=== PATIENT | male | born 1940 | race Caucasian/White ===

== ENCOUNTER 2024-03-07 15:46 | Emergency (ER) | payer MEDICARE ==
[~2024-03-07] VITALS: Ht 175.3 cm; Wt 88.0 kg
[~2024-03-07 15:46] MED LIST: FLOMAX0.4 MG PO; TRAMADOL HCL50 MG PO
[2024-03-07 16:02] LABS: BILIRUBIN, URINE NEGATIVE (negative); BLOOD/HGB, URINE TRACE-I (Negative); KETONE, URINE NEGATIVE (Negative); LEUK ESTERASE, URINE NEGATIVE (negative); NITRITE, URINE NEGATIVE (negative); PH, URINE 5.5 (5-7)
[2024-03-07 16:10] LABS: BACTERIA, URINE RARE /hpf (negative); CASTS, URINE NONE SEEN \\lpf; COLLECTION TYPE, URINE CLEAN CATCH; CRYSTALS, URINE NONE SEEN (0-1+); REFLEX CULTURE, URINE No (No); WHITE BLOOD CELLS, URINE 0-1 /HPF (0-5)
[2024-03-07 17:22] LABS: BASOPHILS 0.5 % (0-2); EOSINOPHILS 0.8 % (0-6); HEMATOCRIT 47.4 % (35.0-50.0); HEMOGLOBIN 16.3 g/dL (12.0-18.0); LYMPHOCYTES 11.7 % (24-44); MCH 32.3 (27-36); MCHC 34.4 g/dl (30-36); MCV 93.9 fl (81-99); MONOCYTES 6.7 % (0-12); NEUTROPHILS 80.3 % (39-80); PLATELET COUNT 239 K/uL (140-440); RBC 5.05 M/ul (4.3-5.7); RDW 13.4 (10.5-15.0)
[2024-03-07 17:39] LABS: ALBUMIN 3.9 g/dL (3.4-5.0); ALBUMIN/GLOBULIN RATIO 0.95 (1.1-2.4); ANION GAP 14.3 (7-21); BILIRUBIN, TOTAL 0.7 ng/dL (0.2-1.0); BUN/CREATININE RATIO 12.61 (6.0-28.6); CALCIUM 9.6 mg/dL (8.5-10.1); CREATININE, SERUM 1.11 mg/dL (0.70-1.30); POTASSIUM 4.3 mmol/L (3.5-5.1)
[2024-03-07 17:59] VITALS: BP 108/95
== END 2024-03-07 19:32 ==
LOC: ED 15:46
PROVIDERS: Emergency Medicine
DX: K40.31 Unilateral inguinal hernia, with obstruction, without gangrene, recurrent (principal); K43.9 Ventral hernia without obstruction or gangrene; K57.90 Diverticulosis of intestine, part unspecified, without perforation or abscess without bleeding; K76.0 Fatty (change of) liver, not elsewhere classified; F17.200 Nicotine dependence, unspecified, uncomplicated; Z88.0 Allergy status to penicillin; Z88.5 Allergy status to narcotic agent; Z79.891 Long term (current) use of opiate analgesic; Z79.899 Other long term (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
CPT/HCPCS: 36415; 51798; 74177; 80053; 81001; 83605; 85025; 99284-25; Q9967

== ENCOUNTER 2025-02-10 17:34 | Emergency (ER) | payer MEDICARE ==
[~2025-02-10] VITALS: Ht 175.3 cm; Wt 100.0 kg
[2025-02-10 17:56] LABS: BASOPHILS 0.5 % (0.2-1.2); EOSINOPHILS 1.2 % (0.8-7.0); LYMPHOCYTES 11.0 % (21.8-53.1); MCH 30.1 PG (25.7-32.2); MCHC 33.1 g/dL (32.3-36.5); MCV 90.8 fL (79.0-92.2); MONOCYTES 9.3 % (5.3-12.2); NEUTROPHILS 77.7 % (34.0-67.9); RBC 5.19 M/uL (4.63-6.08)
[2025-02-10 18:12] LABS: ALT (SGPT) 28.0 U/L (14-59); AST (SGOT) 25.0 U/L (15-37); GLOMERULAR FILTRATION RATE,EST 53.0 mL/min (>60); PROTEIN, TOTAL 7.8 g/dL (6.4-8.2); UREA NITROGEN 17.0 mg/dL (7-18)
[2025-02-10] MEDS ORDERED: LIDOCAINE 2% VISCOUS 6 ML SYR TOP ONE (18:15)
[2025-02-10 18:25] LABS: BLOOD/HGB, URINE TRACE-I (Negative); KETONE, URINE NEGATIVE (Negative); LEUK ESTERASE, URINE NEGATIVE (negative); NITRITE, URINE NEGATIVE (negative)
[2025-02-10 18:32] LABS: BACTERIA, URINE NONE SEEN /hpf (negative); CASTS, URINE NONE SEEN \\lpf; CRYSTALS, URINE NONE SEEN (0-1+); EPITHELIAL CELLS, URINE 0 /lpf (0-1+); REFLEX CULTURE, URINE No (No)
[2025-02-10] MEDS ORDERED: FLOMAX0.4 MG PO (19:27)
[2025-02-10] MEDS ORDERED: TAMSULOSIN HCL 0.4 MG CAP PO ONE (19:30)
[2025-02-10 19:54] VITALS: BP 151/97
== END 2025-02-10 19:55 | disposition home or self-care (01) ==
LOC: ED 17:34
PROVIDERS: Emergency Medicine
DX: N40.1 Benign prostatic hyperplasia with lower urinary tract symptoms (principal); R33.8 Other retention of urine; K40.91 Unilateral inguinal hernia, without obstruction or gangrene, recurrent; F17.200 Nicotine dependence, unspecified, uncomplicated; Z88.0 Allergy status to penicillin; Z88.5 Allergy status to narcotic agent; Z79.899 Other long term (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
CPT/HCPCS: 36415; 51702; 51798; 80053; 81001; 83690; 85025; 99284-25; A4311

== ENCOUNTER 2025-02-11 23:45 | Emergency (ER) | payer MEDICARE ==
[~2025-02-11] VITALS: Ht 175.3 cm; Wt 90.0 kg
--- OUTSIDE RECORDS SUMMARY | 2025-02-11 23:52 | XMS ---
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 Eliazar has no Care Guidelines for this patient. Caty VISIT COUNT (12 MO.) [address] [facility] [place] TOTAL 3 NOTE: Visits indicate total known visits. ED/C VISIT TRACKING (12 MO.) 02/11/2025 23:46 [facility] [place] TYPE: Emergency COMPLAINT: - CATHETER PROBLEMS 02/10/2025 17:35 [facility] [place] TYPE: Emergency COMPLAINT: - ABDOMINAL PAIN DIAGNOSES: - Allergy status to narcotic agent - Allergy status to penicillin - Benign prostatic hyperplasia with lower urinary tract symptoms - Lower abdominal pain, unspecified - Nicotine dependence, unspecified, uncomplicated - Other residential (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 - Other retention of urine - Unilateral inguinal hernia, without obstruction or gangrene, recurrent 03/07/2024 15:46 [facility] [place] TYPE: Emergency COMPLAINT: - ABDOMINAL PAIN DIAGNOSES: - Allergy status to narcotic agent - Allergy status to penicillin - Diverticulosis of intestine, part unspecified, without perforation or abscess without bleeding - Fatty (change of) liver, not elsewhere classified - [facility] (current) use of opiate analgesic - Nicotine dependence, unspecified, uncomplicated - Other residential (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 - Pelvic and perineal pain - Unilateral inguinal hernia, with obstruction, without gangrene, recurrent - Ventral hernia without obstruction or gangrene INPATIENT VISIT TRACKING (12 MO.) No inpatient visits to display in this time frame [id number]
[2025-02-12] MEDS ORDERED: LIDOCAINE 2% VISCOUS 6 ML SYR TOP ONE ×2 (00:15→00:30)
[2025-02-12] MEDS ORDERED: PHENAZOPYRIDINE HCL 100 MG TAB PO ONE (00:30)
[2025-02-12] MEDS ORDERED: TAMSULOSIN HCL 0.4 MG CAP PO ONE (00:30)
[2025-02-12] MEDS ORDERED: PYRIDIUM100 MG PO (00:49)
[2025-02-12 01:24] VITALS: BP 137/83
== END 2025-02-12 02:08 | disposition home or self-care (01) ==
LOC: ED 23:45
DX: N40.1 Benign prostatic hyperplasia with lower urinary tract symptoms (principal); R33.8 Other retention of urine; K40.91 Unilateral inguinal hernia, without obstruction or gangrene, recurrent; F17.200 Nicotine dependence, unspecified, uncomplicated; Z88.0 Allergy status to penicillin; Z88.5 Allergy status to narcotic agent; Z79.899 Other long term (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
CPT/HCPCS: 51702; 51798; 99284-25; A4311

== ENCOUNTER 2025-02-16 23:47 | Emergency (ER) | payer MEDICARE ==
[~2025-02-16] VITALS: Ht 175.3 cm; Wt 88.6 kg
[~2025-02-16 23:47] MED LIST changes: +PYRIDIUM100 MG PO
--- OUTSIDE RECORDS SUMMARY | 2025-02-16 23:54 | XMS ---
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 Eliazar has no Care Guidelines for this patient. Caty VISIT COUNT (12 MO.) 4 [facility] [place] [facility] TOTAL 4 NOTE: Visits indicate total known visits. ED/C VISIT TRACKING (12 MO.) 02/16/2025 23:47 [facility] [place] TYPE: Emergency COMPLAINT: - CATHETER ISSUES 02/11/2025 23:46 [facility] [place] TYPE: Emergency COMPLAINT: - CATHETER PROBLEMS DIAGNOSES: - Allergy status to narcotic agent - Allergy status to penicillin - Benign prostatic hyperplasia with lower urinary tract symptoms - Nicotine dependence, unspecified, uncomplicated - Other terminal makeup operator (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 - Other retention of urine - Retention of urine, unspecified - Unilateral inguinal hernia, without obstruction or gangrene, recurrent 02/10/2025 17:35 [facility] [place] TYPE: Emergency COMPLAINT: - ABDOMINAL PAIN DIAGNOSES: - Allergy status to narcotic agent - Allergy status to penicillin - Benign prostatic hyperplasia with lower urinary tract symptoms - Lower abdominal pain, unspecified - Nicotine dependence, unspecified, uncomplicated - Other retirement (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 - Other retention of urine - Unilateral inguinal hernia, without obstruction or gangrene, recurrent 03/07/2024 15:46 [facility] [place] TYPE: Emergency COMPLAINT: - ABDOMINAL PAIN DIAGNOSES: - Allergy status to narcotic agent - Allergy status to penicillin - Diverticulosis of intestine, part unspecified, without perforation or abscess without bleeding - Fatty (change of) liver, not elsewhere classified - senior care (current) use of opiate analgesic - Nicotine dependence, unspecified, uncomplicated - Other terminal makeup operator (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 - Pelvic and perineal pain - Unilateral inguinal hernia, with obstruction, without gangrene, recurrent - Ventral hernia without obstruction or gangrene INPATIENT VISIT TRACKING (12 MO.) No inpatient visits to display in this time frame [id number]
[2025-02-17] MEDS ORDERED: LIDOCAINE 2% VISCOUS 6 ML SYR TOP ONE (00:15)
[2025-02-17 00:36] LABS: BLOOD/HGB, URINE LARGE (Negative); KETONE, URINE NEGATIVE (Negative); LEUK ESTERASE, URINE TRACE (negative); NITRITE, URINE POSITIVE (negative)
[2025-02-17] MEDS ORDERED: MACROBID 100 M100 MG PO (00:52)
[2025-02-17 00:56] LABS: BACTERIA, URINE 1+ /hpf (negative); CRYSTALS, URINE NONE SEEN (0-1+); EPITHELIAL CELLS, URINE SQUAMOUS 1+ /lpf (0-1+)
[2025-02-17 00:57] LABS: CASTS, URINE HYALINE 1+ \\lpf; REFLEX CULTURE, URINE Yes (No)
[2025-02-17] MEDS ORDERED: NITROFURANTOIN MONOHYD MACROCR 100 MG HOME.PACK PO ONE (01:00)
[2025-02-17 01:24] VITALS: BP 147/89
== END 2025-02-17 01:30 | disposition home or self-care (01) ==
LOC: ED 23:47
PROVIDERS: Family Medicine
DX: T83.091A Other mechanical complication of indwelling urethral catheter, initial encounter (principal); Y84.6 Urinary catheterization as the cause of abnormal reaction of the patient, or of later complication, without mention of misadventure at the time of the procedure; F17.200 Nicotine dependence, unspecified, uncomplicated; Z79.899 Other long term (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; Z88.0 Allergy status to penicillin; Z88.5 Allergy status to narcotic agent
CPT/HCPCS: 51702; 51798; 81001; 87088; 99283; A4311

== ENCOUNTER 2025-04-03 05:42 | Day surgery (SDC) | payer MEDICARE ==
[~2025-04-03] VITALS: Ht 175.3 cm; Wt 98.0 kg
[~2025-04-03 05:42] MED LIST changes: +LACTATED RINGER'S 1,000 ML IV SCH; +MACROBID 100 M100 MG PO; +VITAMIN D3125 MC2 PO
[2025-04-03 06:08] VITALS: BP 152/86
[2025-04-03] MEDS ORDERED: HEParin SOD (PORCINE) 5,000 UNIT/ML SDV SUB-Q SCH (07:00)
[2025-04-03] MEDS ORDERED: IBLOOD GLUCOSE TEST STRIP 1 EA TEST VI PRN ×2 (07:00→10:15)
[2025-04-03] MEDS ORDERED: CEFAZOLIN SODIUM 2 GM in SODIUM CHLORIDE 0.9% 100 ML IV SCH (07:00)
[2025-04-03] MEDS ORDERED: LIDOCAINE HCL 1% 5 ML SDV INJ ONE (07:00)
[2025-04-03] MEDS ORDERED: ROCURONIUM BROMIDE 50 MG/5 ML SYR ONE ×2 (07:11→09:20)
[2025-04-03] MEDS ORDERED: LIDOCAINE HCL 2% 5 ML SDV ONE (07:11)
[2025-04-03] MEDS ORDERED: fentaNYL citrate 100 MCG/2 ML VIAL ONE (07:12)
[2025-04-03] MEDS ORDERED: ACETAMINOPHEN 1,000 MG/100 ML VIAL ONE (07:56)
[2025-04-03] MEDS ORDERED: DEXAMETHASONE SOD PHOS 4 MG/ML VIAL ONE (07:58)
[2025-04-03] MEDS ORDERED: LACTATED RINGER'S 1,000 ML IV ONE (08:29)
[2025-04-03] MEDS ORDERED: SUGAMMADEX SODIUM 200 MG/2 ML ML ONE (09:55)
[2025-04-03] MEDS ORDERED: NALOXONE HCL 0.4 MG SYR IV PRN ×2 (10:15→10:45)
[2025-04-03] MEDS ORDERED: fentaNYL citrate 50 MCG/ML SDV IV PRN (10:15)
--- NOTE | 2025-04-03 10:21 | NUR ---
04/03/25 1021 Sheets,Jasmina 1012 PT ARRIVED TO PACU ON 6L VIA MASK AND ORAL AIRWAY IN PLACE WITH CHIN LIFT USED OFF AND ON TO MAINTAIN AIRWAY, DEEP BREATHING ENCOURAGED. 1019 PT STARTED SWALLOWING AND ORAL AIRWAY REMOVED, RESP EVEN AND UNLABORED. PT EYES REMAIN CLOSED.
[2025-04-03] MEDS ORDERED: IBUPROFEN600 MG PO ×2 (10:38)
[2025-04-03] MEDS ORDERED: ACETAMINOPHEN500 MG PO ×2 (10:38)
[2025-04-03] MEDS ORDERED: OXYCODON-ACETA1 EAC2 PO ×2 (10:39)
[2025-04-03] MEDS ORDERED: IBUPROFEN 600 MG TAB PO PRN (10:45)
[2025-04-03] MEDS ORDERED: ACETAMINOPHEN 500 MG TAB PO PRN (10:45)
[2025-04-03] MEDS ORDERED: OXYCODONE/APAP 7.5/325 TAB PO PRN (10:45)
[2025-04-03] MEDS ORDERED: LACTATED RINGER'S 1,000 ML IV SCH (10:45)
[2025-04-03 11:31] VITALS: BP 169/86
--- NOTE | 2025-04-03 11:47 | NUR ---
1125- PT ARRIVES FROM PACU AT THIS TIME. LR INFUSING. SURGICAL SITE SHOWS A SMALL AMOUNT OF RED DRAINAGE. VITAL SIGNS OBTAINED. PT REPORTS 6/10 PAIN THAT IS TOLERABLE BUT NOT COMFORTABLE. ORAL PAIN MEDICATION DISCUSSED. PT HAS DOMINGUEZ IN PLACE AND IS DRAINING CLEAR, YELLOW, URINE. DISCHARGE CRITERIA DISCUSSED AND PT IS UNDERSTANDING. CALL LIGHT IN REACH AND BED IS LOCKED IN THE LOWEST POSITON. PT IS ON 2L OF O2 VIA NC. 1143- PAIN MEDICATION GIVEN TO PT PER REQUEST ALONG WITH APPLE SAUCE AND COFFEE. ICE WATER AT THE SIDE OF THE BED TABLE.
[2025-04-03 12:22] VITALS: BP 153/83
--- NOTE | 2025-04-03 12:24 | NUR ---
1224- PT IS HOLDING HIS HAND OVER THE INCISION SITE WITH A SMALL AMOUNT OF FACIAL GRIMACING NOTED. PT REPORTS THAT PAIN IS AT A 7/10 AND REALLY UNCOMFORTABLE. PAIN MEDICATION GIVEN, SEE EMAR. VITAL SIGNS OBTAINED. CALL LIGHT IN REACH. BED IS LOCKED IN THE LOWEST POSITION. LR INFUSING. PT WAS ABLE TO SIP ON WATER AND EAT 2 APPLE SAUCE CONTAINERS. PT REPORTS HE IS HAPPY HE HAS FOOD ON HIS STOMACH. HOT PACK PROVIDED. AND BED ADJUSTED FOR PT COMFORT.
[2025-04-03 13:10] VITALS: BP 117/84
[2025-04-03] MEDS ORDERED: HYDROmorphone HCL 1 MG/ML SYR IV ONE (13:15)
--- NOTE | 2025-04-03 13:52 | NUR ---
1309- PT REPORTS THAT PAIN HAS NOT GOTTEN ANY BETTER AND CONTINUES TO BE IN THE 7-8 RANGE ON PAIN. PT BP IS DECREASED. PT SHOWS LESS FACIAL GRIMACING BUT STILL HOLDING HANDS OVER INCISION SITE. PT DENIES NEEDS AT THIS TIME, OTHER THAN HELP WITH PAIN MANAGEMENT. 1325- 0.5 OF DILAUDID GIVEN PER CLINICAL JUDGEMENT. WITH DECREASED BP THATS STILL WNL. 1350- PT IS EDUCATED ABOUT DRAIN AND SHOWN HOW TO CARE FOR IT. ALL QUESTIONS AND CONCERNS ANSWERED. DOMINGUEZ CATHETER IS DRAINED AT THIS TIME FOR A TOTAL OF 1000ML OF CLEAR YELLOW URINE AND THE DRAIN HAD 30ML OF RED DRAINAGE. CALL LIGHT IN REACH. PT REPORTS THAT PAIN IS NOW AT A 6/10 AND MORE TOLERABLE. CALL LIGHT IN REACH.
[2025-04-03] MEDS ORDERED: SEVOFLURANE 250 ML BTL INH ONE (14:25)
[2025-04-03 14:29] VITALS: BP 166/93
--- NOTE | 2025-04-03 15:49 | NUR ---
1430- VITAL SIGNS TAKEN AND PT REPORTS THAT PAIN IS BETTER AND A 3/10 NOW WITH A THUMBS UP. DISCHARGE INFORMATION GONE OVER AND ALL QUESTIONS AND CONCERNS ANASWERED. PT IS ABLE TO SHOW RN HOW TO EMPTY HIS DRAIN INDEPENDENTLY WITH SOME VERBAL ASSISTANCE. LEG BAG APPLIED PT IS RETURNING HOME WITH HIS CATHETER THAT HE HAD IN PLACE ON ARRIVAL. 1538- PT IS DRESSED WITH ASSISTANCE FROM RN. PT IS A LITTLE UNSTEADY AND USING HIS PERSONAL CANE. PT IS ABLE TO AMBULATE TO HOSPITAL WHEELCHAIR. PT HAS ALL PERSONAL BELONGINGS. PT IS WHEELED TO THE FRONT DOOR AND IS ABLE TO GET INTO HIS NEIGHBORS TRUCK WITH SOME ASSISTANCE. NEIGHBOR IS MADE AWARE ABOUT PRESCRIPTION TO BE PICKED UP.
--- NOTE | 2025-04-04 09:06 | OR ---
[facility] [address], [place] [address] Signed DATE OF OPERATION: 04/03/2025 SURGEON: Pepe Mathew MD PREOPERATIVE DIAGNOSIS: Giant incarcerated right inguinal hernia. POSTOPERATIVE DIAGNOSES: Giant incarcerated right inguinal hernia, indirect hernia with sliding component (mesentery and small bowel). PROCEDURE: Repair of complex right inguinal hernia (incarcerated) sliding type with implantation of Prolene mesh and excision of portion of hernia sac. ANESTHESIA: General endotracheal; Cynthia Shirley CRNA and local 10 mL of 0.25% Marcaine with epinephrine. INDICATION: This 84-year-old white man has no primary care provider, but presented to the emergency room with urinary retention and was found to have a giant right inguinal hernia. A Staley catheter was placed relieving his obstruction. The hernia is nonreducible on clinical grounds. I have recommended repair. Prostate exam does not show the prostate to be inordinately large or with nodularity. He is due to see Dr. Erin Selby in the near future for further management of his urinary retention and prostatic evaluation. He is admitted at this time to undergo hernia repair. He understands the risk of bleeding, infection, recurrence, and other unforeseen complications. FINDINGS: A very large hernia was noted indeed. It was at least the size of a cantaloupe. It turned out to be an indirect hernia with a very large and well-formed sac. A sliding component of small bowel and its mesentery was noted in the medial aspect. Excision of redundant sac was accomplished and reduction of the closed hernia sac and other viscera into the peritoneal space. Implantation of Prolene mesh was undertaken and support of the floor. Cord structures were found to be normal. Given the extent of the excision and so forth, a drain was left in place. DESCRIPTION OF PROCEDURE: The patient was brought to the operating room and given a general endotracheal Electronically Signed By: PEPE MATHEW MD 04/04/25 0906 PATIENT NAME: LILI JUAREZ OPERATIVE REPORT DATE OF : 44 REPORT #: [id number] PHYSICIAN: PEPE MATHEW MD PCP: NO PRIMARY CARE PHYSICIAN REPORT IS CONFIDENTIAL AND NOT TO BE RELEASED WITHOUT AUTHORIZATION [facility] [address], [place] [address] Signed anesthetic. Preoperative antibiotic Ancef was given and sequential compression device stockings were used. The lower abdomen was clipped and prepared with chlorhexidine solution. A Staley catheter remains in place right now, anticipating change in the near future by Dr. Selby and her office. The lower abdomen was prepared with a chlorhexidine solution including the scrotum and surrounding genitalia. Various manipulations were undertaken once the patient was fully relaxed under anesthesia, which did allow for reduction of the bulky hernia largely. An incision was made cephalad to the pubic tubercle. Dissection was carried through the subcutaneous tissue with electrocautery. Complete attenuation and obliteration of the external oblique was noted. The bulky hernia was then bluntly from the surrounding soft tissue. Electrocautery was used to incise filmy external spermatic fascia ultimately allowing for of the cord structures with a Geovani drain. Various maneuvers were used to elevate the cord and the hernia sac and hernia sac was dissected free from the cord with meticulous care using electrocautery and blunt dissection. Ultimately, the hernia sac was fully from the cord. The hernia sac was elevated and incised and opened and internally one could see adhesion of small bowel to the wall in the medial and inferior aspect. These were taken down with sharp and blunt electrocautery dissection. Ultimately, most of the bowel was reduced entirely, however, the was made up of fatty tissue, possibly related to bladder and to a lesser extent the small bowel. This area was left in situ. The wide base hernia sac was oversewn as high as possible initially with a 2-0 silk and subsequently 0 silk in a running configuration. This allowed the sliding component of the hernia and the oversewn hernia sac to be replaced in the properitoneal space. The hernia sac was passed for pathology. An Allis clamp was applied to the tendon of the transversus abdominis. The floor itself was rather attenuated. Part of the floor was incised with electrocautery, but additional dissection more lateral near the cord was left as is. A segment of Prolene ProGrip mesh was secured in an underlay technique with interrupted 2-0 Prolene sutures. Meticulous care was made to secure the mesh in the properitoneal space with the tails of the graft taken lateral to the cord structures and secured also. Irrigation was undertaken. The Joey's layer was reapproximated with interrupted 2-0 Vicryl and the skin closed with running subcuticular 3-0 Vicryl. Steri-Strips were applied as was an Acticoat dressing. 5 mL of 0.25% Marcaine with epinephrine was injected locally. Prior to closure through a separate stab incision, a 7 mm flat Edward drain was placed in the floor of the canal extending down into the hemiscrotum. Quite notably the testicle had been spared of any particular trauma, but given the space and propensity for swelling and bleeding, the drain was deemed most advisable. He was ultimately extubated and transferred to recovery room in good condition having suffered no complication. The operation was prolonged, complicated, and difficult lasting from 8 a.m. to approximately 10:20 a.m. just four times longer than usual. Electronically Signed By: PEPE MATHEW MD 04/04/25 0906 PATIENT NAME: LILI JUAREZ OPERATIVE REPORT DATE OF : 44 REPORT #: [id number] PHYSICIAN: PEPE MATHEW MD PCP: NO PRIMARY CARE PHYSICIAN REPORT IS CONFIDENTIAL AND NOT TO BE RELEASED WITHOUT AUTHORIZATION [address] [address] Signed MD KAREEN Shah/MODL /[id number] cc: KHLOE Jean Baptiste MD Copies: ROCÍO SELBY MD ~ Electronically Signed By: PEPE MATHEW MD 04/04/25 0906 PATIENT NAME: LILI JUAREZ OPERATIVE REPORT DATE OF : [birth year] REPORT #: [id number] PHYSICIAN: PEPE MATHEW MD PCP: NO PRIMARY CARE PHYSICIAN REPORT IS CONFIDENTIAL AND NOT TO BE RELEASED WITHOUT AUTHORIZATION
--- NOTE | 2025-04-09 17:21 | PATH ---
[facility] [address] [place] [address] Signed SPECIMEN(S): A RIGHT INGUINAL HERNIA SAC SPECIMEN SOURCE: A. RIGHT INGUINAL HERNIA SAC CLINICAL HISTORY: Giant right inguinal hernia FINAL PATHOLOGIC DIAGNOSIS: A. Right inguinal hernia sac, herniorrhaphy: - Benign hernia sac. DDF MICROSCOPIC EXAMINATION: Histologic sections of all submitted blocks are examined by light microscopy. These findings, together with the gross examination, support the pathologic diagnosis. GROSS DESCRIPTION: The specimen, labeled and designated "Breanne, right inguinal hernia sac," is received in formalin and consists of fibromembranous and fibroadipose tissue that measure 17 x 7.5 x 0.9 cm. Fibromembranous tissue is violaceous and focally congested. Sectioning through the specimen is grossly unremarkable. Carpenters Supervisor sections are submitted in (A1). JS (under the direct supervision of a pathologist) The Gross Description was prepared using a voice recognition system. The report was reviewed for accuracy; however, sound-alike word errors, addition and/or deletions may occur. If there is any question about this report, please contact Client Services. ADDITIONAL NOTES: Immunohistochemical and/or in situ hybridization studies if performed in this case included appropriate positive controls that reacted as expected. This test was developed and its performance characteristics determined by [facility]. It has not been cleared or approved by the U.S. Food and Drug Administration. The FDA has determined that such clearance or approval is not necessary. This test is used for clinical purposes. It should not be regarded as investigational or for research. [facility] is certified under the Clinical Laboratory Improvement PATIENT NAME: LILI JUAREZ PATHOLOGY DATE OF : 42 REPORT #: [id number] PHYSICIAN: [facility] PCP: NO PRIMARY CARE PHYSICIAN REPORT IS CONFIDENTIAL AND NOT TO BE RELEASED WITHOUT AUTHORIZATION [facility] [address] [facility] [place] [place] [address] Signed Amendments of 1988 (CLIA) as qualified to perform high complexity clinical laboratory testing. PERFORMING LABORATORY: Technical component was performed by [facility], [address] [place] [id number] (CLIA# [id number]). Professional interpretation was performed by [facility] - [address] [id number] Diagnostician: Joel Aly DO Pathologist Electronically Signed 04/09/2025 Copies: ~ PATIENT NAME: LILI JUAREZ PATHOLOGY DATE OF : 44 REPORT #: [id number] PHYSICIAN: [facility] PCP: NO PRIMARY CARE PHYSICIAN REPORT IS CONFIDENTIAL AND NOT TO BE RELEASED WITHOUT AUTHORIZATION
== END 2025-04-03 15:38 | disposition home or self-care (01) ==
LOC: DS 05:42
PROVIDERS: ATTEND Surgery
PROC: 0YU50JZ Supplement Right Inguinal Region with Synthetic Substitute, Open Approach (ICD-10-PCS; principal; 2025-04-03 07:30)
DX: K40.30 Unilateral inguinal hernia, with obstruction, without gangrene, not specified as recurrent (principal); R33.9 Retention of urine, unspecified; Z88.0 Allergy status to penicillin; Z88.5 Allergy status to narcotic agent; Z87.891 Personal history of nicotine dependence
CPT/HCPCS: 00830; 88302; A9270; C1781; J0131; J0688; J1100; J1171; J1644; J2003; J2405; J2704; J3010; J3490; J7121

== ENCOUNTER 2025-04-05 08:37 | Emergency (ER) | payer MEDICARE ==
[~2025-04-05] VITALS: Ht 175.3 cm; Wt 100.9 kg
[~2025-04-05 08:37] MED LIST changes: +ACETAMINOPHEN500 MG PO; +IBUPROFEN600 MG PO; -LACTATED RINGER'S 1,000 ML IV SCH; +OXYCODON-ACETA1 EAC2 PO
[2025-04-05] MEDS ORDERED: LIDOCAINE 2% VISCOUS 6 ML SYR TOP ONE (09:00)
[2025-04-05 09:37] LABS: BLOOD/HGB, URINE LARGE (Negative); KETONE, URINE NEGATIVE (Negative); LEUK ESTERASE, URINE TRACE (negative); NITRITE, URINE NEGATIVE (negative)
[2025-04-05 09:43] LABS: EPITHELIAL CELLS, URINE SQUAMOUS 1+ /lpf (0-1+)
[2025-04-05 09:44] LABS: BACTERIA, URINE 1+ /hpf (negative); CASTS, URINE NONE SEEN \\lpf; CRYSTALS, URINE NONE SEEN (0-1+); REFLEX CULTURE, URINE Yes (No)
[2025-04-05] MEDS ORDERED: SODIUM CHLORIDE 0.9% 1,000 ML IV ONE (09:45)
[2025-04-05 10:13] LABS: BASOPHILS 0.5 % (0.2-1.2); EOSINOPHILS 0.9 % (0.8-7.0); LYMPHOCYTES 12.9 % (21.8-53.1); MCH 31.3 PG (25.7-32.2); MCHC 32.4 g/dL (32.3-36.5); MCV 96.7 fL (79.0-92.2); MONOCYTES 10.4 % (5.3-12.2); NEUTROPHILS 75.0 % (34.0-67.9); RBC 4.50 M/uL (4.63-6.08)
[2025-04-05 10:29] LABS: ALT (SGPT) 28.0 U/L (14-59); AST (SGOT) 23.0 U/L (15-37); GLOMERULAR FILTRATION RATE,EST 74.0 mL/min (>60); PROTEIN, TOTAL 7.1 g/dL (6.4-8.2); UREA NITROGEN 19.0 mg/dL (7-18)
[2025-04-05 10:54] VITALS: BP 132/85
== END 2025-04-05 10:54 | disposition home or self-care (01) ==
LOC: ED 08:37
PROVIDERS: Emergency Medicine
DX: T83.091A Other mechanical complication of indwelling urethral catheter, initial encounter (principal); Z79.899 Other long term (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; Z88.0 Allergy status to penicillin; Z88.5 Allergy status to narcotic agent; F17.200 Nicotine dependence, unspecified, uncomplicated
CPT/HCPCS: 36415; 74177; 80053; 81001; 85025; 87088; 99284-25; J7030; Q9967

== ENCOUNTER 2025-04-25 10:01 | Emergency (ER) | payer MEDICARE ==
[~2025-04-25] VITALS: Ht 175.3 cm; Wt 100.9 kg
--- OUTSIDE RECORDS SUMMARY | ~2025-04-25 | XMS | Continuity of Care Document ---
Demographics + + + | Address | [address] | | | [place] [address] | + + + | Preferred Language | Unknown | + + + | Marital Status | | + + + | Denominational Affiliation | Unknown | + + + | Race | White | + + + | Ethnic Group | Not or | + + + Author + + + | Author | [facility] | + + + | Organization | [facility] | + + + | Address | [address] | | | [place] [address] | + + + | Phone | | + + + Care Team Providers + + + + | Care Floor Layer Helper Name | Role | Phone | + [...] Severe | | 00:00 | | [facility] [...] | Severe | | 00:00 | | [facility] | | | | | | Hospital | | | + + + + + + Encounters No information. Functional Status No information. Immunizations + + + + | date | description | facility | + + + + | (no date) | No vaccine administered | [facility] | | | | [facility] | + + + + Medications + + + + | date | description | facility | + + + + | 2025-04-03 00:00 | OXYCODONE | [facility] | | | HCL/ACETAMINOPHEN | [facility] | + + + + | 2025-04-03 00:00 | acetaminophen 325 MG / | [facility] | | | oxycodone hydrochloride 7.5 | [facility] | | | MG Oral T | | + + + + | (no date) | PHENAZOPYRIDINE HCL | [facility] | | | | [facility] | + + + + | 2025-02-12 00:00 | PHENAZOPYRIDINE HCL | [facility] | | | | [facility] | + + + + | (no date) | phenazopyridine | [facility] | | | hydrochloride 100 MG Oral | [facility] | | | Tablet [Pyridium] | | + + + + | 2025-02-12 00:00 | phenazopyridine | [facility] | | | hydrochloride 100 MG Oral | [facility] | | | Tablet [Pyridium] | | + + + + | 2025-04-03 00:00 | IBUPROFEN | [facility] | | | | [facility] | + + + + | 2025-04-03 00:00 | ibuprofen 600 MG Oral | [facility] | | | Tablet | [facility] | + + + + | 2025-04-03 00:00 | ACETAMINOPHEN | [facility] | | | | [facility] | + + + + | 2025-04-03 00:00 | acetaminophen 500 MG Oral | [facility] | | | Tablet | [facility] | + + + + | 2025-02-17 00:00 | NITROFURANTOIN MONOHYD | [facility] | | | MACROCR | [facility] | + + + + | 2025-02-17 00:00 | nitrofurantoin, | [facility] | | | macrocrystals 25 MG / | [facility] | | | nitrofurantoin, monohy | | + + + + | (no date) | Cholecalciferol (Vitamin | [facility] | | | D3) | [facility] | + + + + | (no date) | cholecalciferol 0.125 MG | [facility] - | | | Oral Tablet | [facility] | + + + + | (no date) | TAMSULOSIN HCL | [facility] | | | | [facility] | + + + + | 2025-02-10 00:00 | T[facility]OSIN HCL | [facility] | | | | [facility] | + + + + | (no date) | tamsulosin hydrochloride | [facility] | | | 0.4 MG Oral Capsule | [facility] | | | [Flomax] | | + + + + | 2025-02-10 00:00 | tamsulosin hydrochloride | [facility] | | | 0.4 MG Oral Capsule | [facility] | | | [Flomax] | | + + + + Problems + + + + | date | description | facility | + + + + | 2025-02-10 00:00 | Recurrent unilateral | [facility] | | | inguinal hernia | [facility] | + + + + | 2025-02-10 00:00 | Urinary retention due to | [facility] | | | benign prostatic | [facility] | | | hyperplasia | | + + + + | 2025-02-10 00:00 | Recurrent unilateral | [facility] | | | inguinal hernia | [facility] | + + + + | 2025-02-10 00:00 | Urinary retention due to | [facility] | | | benign prostatic | [facility] | | | hyperplasia | | + + + + | 2025-02-17 00:00 | Obstructed Staley catheter | [facility] | | | | [facility] | + + + + | 2025-02-17 00:00 | Obstruction of Staley | [facility] | | | catheter | [facility] | + + + + Procedures + + + + | date | description | facility | + + + + | 2025-04-03 00:00 | Repair of right inguinal | [facility] | | | hernia with mesh | [facility] | + + + + | 2025-04-03 00:00 | Repair of right inguinal | [facility] | | | hernia with mesh | [facility] | + + + + Results/Labs [...] 18 | + + + + + +-------+ [...] 17 | + + + + + +-------+ [...] 18 | + + + + + +-------+ [...] 21 | + + + + + +--------+ [...] 26 | + + + + + +--------+ [...] 26 | + + + + + +--------+ [...] [facility] | | | | [facility] | + + + + Vital [...] d | | | + + + +---------+"
--- OUTSIDE RECORDS SUMMARY | 2025-04-25 10:07 | XMS ---
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 Eliazar has no Care Guidelines for this patient. Caty VISIT COUNT (12 MO.) [address] [facility] [address] [facility] [place] TOTAL 5 NOTE: Visits indicate total known visits. ED/C VISIT TRACKING (12 MO.) 04/25/2025 10:01 [facility] [place] TYPE: Emergency COMPLAINT: - URINE PROBLEM 04/05/2025 08:37 [facility] [place] TYPE: Emergency COMPLAINT: - URINE PROBLEM DIAGNOSES: - Allergy status to narcotic agent - Allergy status to penicillin - Lower abdominal pain, unspecified - Nicotine dependence, unspecified, uncomplicated - Other senior living (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 - Other mechanical complication of indwelling urethral catheter, initial encounter 02/16/2025 23:47 [facility] [place] TYPE: Emergency COMPLAINT: - CATHETER ISSUES DIAGNOSES: - Allergy status to narcotic agent - Allergy status to penicillin - Nicotine dependence, unspecified, uncomplicated - Other senior living (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 - Other mechanical complication of indwelling urethral catheter, initial encounter - Urinary catheterization as the cause of abnormal reaction of the patient, or of later complication, without mention of misadventure at the time of the procedure 02/11/2025 23:46 [facility] [place] TYPE: Emergency COMPLAINT: - CATHETER PROBLEMS DIAGNOSES: - Allergy status to narcotic agent - Allergy status to penicillin - Benign prostatic hyperplasia with lower urinary tract symptoms - Nicotine dependence, unspecified, uncomplicated - Other senior living (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 - Other retention of urine - Retention of urine, unspecified - Unilateral inguinal hernia, without obstruction or gangrene, recurrent 02/10/2025 17:[address] [facility] [address] [facility] [place] TYPE: Emergency COMPLAINT: - ABDOMINAL PAIN DIAGNOSES: - Allergy status to narcotic agent - Allergy status to penicillin - Benign prostatic hyperplasia with lower urinary tract symptoms - Lower abdominal pain, unspecified - Nicotine dependence, unspecified, uncomplicated - Other keno terminal operator (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 - Other retention of urine - Unilateral inguinal hernia, without obstruction or gangrene, recurrent INPATIENT VISIT TRACKING (12 MO.) No inpatient visits to display in this time frame [id number]
[2025-04-25] MEDS ORDERED: LIDOCAINE 2% VISCOUS 6 ML SYR TOP ONE (10:15)
[2025-04-25 10:21] VITALS: BP 139/74
== END 2025-04-25 10:48 | disposition home or self-care (01) ==
LOC: ED 10:01
PROC: 0TWBX0Z Revision of Drainage Device in Bladder, External Approach (ICD-10-PCS; principal; 2025-04-25)
DX: T83.091A Other mechanical complication of indwelling urethral catheter, initial encounter (principal); F17.200 Nicotine dependence, unspecified, uncomplicated; Z88.0 Allergy status to penicillin; Z88.5 Allergy status to narcotic agent
CPT/HCPCS: 51702; 99283; A4311

== ENCOUNTER 2025-05-06 11:57 | Inpatient (IN) | payer MEDICARE ==
[~2025-05-06] VITALS: Ht 175.3 cm; Wt 91.5 kg
--- OUTSIDE RECORDS SUMMARY | ~2025-05-06 | XMS | Continuity of Care Document ---
Demographics + + + | Address | [address] | | | [place] [address] | + + + | Preferred Language | Unknown | + + + | Marital Status | | + + + | Jew Affiliation | Unknown | + + + | Race | White | + + + | Ethnic Group | Not or | + + + Author + + + | Author | [facility] | + + + | Organization | [facility] | + + + | Address | [address] | | | [place] [address] | + + + | Phone | | + + + Care Team Providers + + + + | Care Block Sawyer Name | Role | Phone | + [...] | Severe | | 00:00 | | [facility] | | | | | | Hospital | | | + + + + + + Encounters No information. Functional Status No information. Immunizations + + + + | date | description | facility | + + + + | (no date) | No vaccine administered | [facility] | | | | [facility] | + + + + Medications + + + + | date | description | facility | + + + + | 2025-04-03 00:00 | [facility] | | | HCL/ACETAMINOPHEN | [facility] | + + + + | 2025-04-03 00:00 | OXYCODONE | [facility] | | | HCL/ACETAMINOPHEN | [facility] | + + + + | 2025-04-03 00:00 | acetaminophen 325 MG / | [facility] | | | oxycodone hydrochloride 7.5 | [facility] | | | MG Oral T | | + + + + | (no date) | PHENAZOPYRIDINE HCL | [facility] | | | | [facility] | + + + + | (no date) | PHENAZOPYRIDINE HCL | [facility] | | | | [facility] | + + + + | 2025-02-12 00:00 | PHENAZOPYRIDINE HCL | [facility] | | | | [facility] | + + + + | 2025-02-12 00:00 | PHENAZOPYRIDINE HCL | [facility] | | | | [facility] | + + + + | (no date) | phenazopyridine | [facility] | | | hydrochloride 100 MG Oral | [facility] | | | Tablet [Pyridium] | | + + + + | 2025-02-12 00:00 | phenazopyridine | [facility] | | | hydrochloride 100 MG Oral | [facility] | | | Tablet [Pyridium] | | + + + + | 2025-04-03 00:00 | IBUPROFEN | [facility] | | | | [facility] | + + + + | 2025-04-03 00:00 | [facility]PROFEN | [facility] | | | | [facility] | + + + + | 2025-04-03 00:00 | ibuprofen 600 MG Oral | [facility] | | | Tablet | [facility] | + + + + | 2025-04-03 00:00 | ACETAMINOPHEN | [facility] | | | | [facility] | + + + + | 2025-04-03 00:00 | ACETAMINOPHEN | [facility] | | | | [facility] | + + + + | 2025-04-03 00:00 | acetaminophen 500 MG Oral | [facility] - | | | Tablet | [facility] | + + + + | 2025-02-17 00:00 | NITROFURANTOIN MONOHYD | [facility] | | | MACROCR | [facility] | + + + + | 2025-02-17 00:00 | NITROFURANTOIN MONOHYD | [facility] | | | MACROCR | [facility] | + + + + | 2025-02-17 00:00 | nitrofurantoin, | [facility] | | | macrocrystals 25 MG / | [facility] | | | nitrofurantoin, monohy | | + + + + | (no date) | Cholecalciferol (Vitamin | [facility] | | | D3) | [facility] | + + + + | (no date) | Cholecalciferol (Vitamin | [facility] | | | D3) | [facility] | + + + + | (no date) | cholecalciferol 0.125 MG | [facility] | | | Oral Tablet | [facility] | + + + + | (no date) | TAMSULOSIN HCL | [facility] | | | | [facility] | + + + + | (no date) | TAMSULOSIN HCL | [facility] | | | | [facility] | + + + + | 2025-02-10 00:00 | TAMSULOSIN HCL | [facility] | | | | [facility] | + + + + | 2025-02-10 00:00 | TAMSULOSIN HCL | [facility] | | | | [facility] | + + + + | (no date) | tamsulosin hydrochloride | [facility] | | | 0.4 MG Oral Capsule | [facility] | | | [Flomax] | | + + + + | 2025-02-10 00:00 | tamsulosin hydrochloride | [facility] | | | 0.4 MG Oral Capsule | [facility] | | | [Flomax] | | + + + + Problems + + + + | date | description | facility | + + + + | 2025-02-10 00:00 | Recurrent unilateral | [facility] | | | inguinal hernia | [facility] | + + + + | 2025-02-10 00:00 | Recurrent unilateral | [facility] | | | inguinal hernia | [facility] | + + + + | 2025-02-10 00:00 | Urinary retention due to | [facility] | | | benign prostatic | [facility] | | | hyperplasia | | + + + + | 2025-02-10 00:00 | Urinary retention due to | [facility] | | | benign prostatic | [facility] | | | hyperplasia | | + + + + | 2025-02-17 00:00 | Obstructed Staley catheter | [facility] | | | | [facility] | + + + + | 2025-02-17 00:00 | Obstruction of Staley | [facility] | | | catheter | [facility] | + + + + | 2025-02-17 00:00 | Obstruction of Staley | [facility] | | | catheter | [facility] | + + + + | 2025-04-05 00:00 | Acute abdominal pain in | [facility] | | | right lower quadrant | [facility] | + + + + | 2025-04-05 00:00 | Problem with Staley | [facility] | | | catheter | [facility] | + + + + | 2025-04-05 00:00 | Broken Skip-Hall drain | [facility] | | | | [facility] | + + + + | 2025-04-25 00:00 | Displacement of Staley | [facility] | | | catheter | [facility] | + + + + Procedures + + + + | date | description | facility | + + + + | 2025-04-03 00:00 | SUPPLEMENT R INGUINAL | [facility] | | | REGION WITH SYNTH SUB, OPEN | [facility] | | | APPROACH | | + + + + | 2025-04-03 00:00 | Repair of hernia in | [facility] | | | pediatric patient | [facility] | + + + + | 2025-04-03 00:00 | Repair of hernia in | [facility] | | | pediatric patient | [facility] | + + + + | 2025-04-03 00:00 | Repair of right inguinal | [facility] | | | hernia with mesh | [facility] | + + + + | [...] 137 | (missing) | (missing) | | [facility] | 10:09:08 | [facility] | [...] 3.8 | (missing) | (missing) | | [facility] | 10:09:08 | [facility] | | | [...] | | | | | | | [facility] | | | | | | | [...]
[~2025-05-06 11:57] MED LIST changes: +CEPHALEXIN500 M1 PO
--- OUTSIDE RECORDS SUMMARY | 2025-05-06 12:04 | XMS ---
PreManage Notification: LILI JUAREZ [employer] Events No recent Security Events currently on file CRITERIA MET - 6 ED Visits in 6 Months - [facility] - 2 Visits in 30 Days CARE PROVIDERS There are no care providers on record at this time. Eliazar has no Care Guidelines for this patient. [facility] ([address] [facility] NOTE: Visits indicate total known visits. ED/UCC VISIT TRACKING (12 MO.) 05/06/2025 11:57 [facility] [place] [place] COMPLAINT: - POSS UTI,FEVER 05/05/2025 12:54 [facility] TYPE: Emergency COMPLAINT: - CONFUSION 04/25/2025 10:01 [facility] [place] TYPE: Emergency COMPLAINT: - URINE PROBLEM DIAGNOSES: - Allergy status to narcotic agent - Allergy status to penicillin - Nicotine dependence, unspecified, uncomplicated - Other mechanical complication of indwelling urethral catheter, initial encounter 04/05/2025 08:37 [facility] [place] TYPE: Emergency COMPLAINT: - URINE PROBLEM DIAGNOSES: - Allergy status to narcotic agent - Allergy status to penicillin - Lower abdominal pain, unspecified - Nicotine dependence, unspecified, uncomplicated - Other mcfp (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 - Other mechanical complication of indwelling urethral catheter, initial encounter 02/16/2025 23:47 [facility] [place] TYPE: Emergency COMPLAINT: - CATHETER ISSUES DIAGNOSES: - Allergy status to narcotic agent - Allergy status to penicillin - Nicotine dependence, unspecified, uncomplicated - 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 [place] TYPE: Emergency COMPLAINT: - ABDOMINAL PAIN DIAGNOSES: - Allergy status to narcotic agent - Allergy status to penicillin - Benign prostatic hyperplasia with lower urinary tract symptoms - Lower abdominal pain, unspecified - Nicotine dependence, unspecified, uncomplicated - Other m[facility]p (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 - Other retention of urine - Unilateral inguinal hernia, without obstruction or gangrene, recurrent INPATIENT VISIT TRACKING (12 MO.) No inpatient visits to display in this time frame [email or web address]
[2025-05-06 12:24] LABS: BASOPHILS 0.2 % (0.2-1.2); EOSINOPHILS 0 % (0.8-7.0); LYMPHOCYTES 3.1 % (21.8-53.1); MCH 31.2 PG (25.7-32.2); MCHC 33.2 g/dL (32.3-36.5); MCV 94.0 fL (79.0-92.2); MONOCYTES 8.5 % (5.3-12.2); NEUTROPHILS 87.2 % (34.0-67.9); RBC 4.36 M/uL (4.63-6.08)
--- OUTSIDE RECORDS SUMMARY | 2025-05-06 12:43 | XMS | Continuity of Care Document ---
Demographics + + + | Address | [facility] | | | [place] [address] | + + + | Preferred Language | Unknown | + + + | Marital Status | | + + + | Druze Affiliation | Unknown | + + + | Race | White | + + + | Ethnic Group | Not or | + + + Author + + + | Author | [facility] | + + + | Organization | [facility] | + + + | Address | [address] | | | [place] [address] | + + + | Phone | | + + + Care Team Providers + + + + | Care Statistical Methods Professor Name | Role | Phone | + + + + Unavailable | Unavailable | + + + + Unavailable | Unavailable | + + + + Unavailable | Unavailable | + + + + Allergies and Intolerances + + + + + + | date | description | facility | reaction | severity | + + + + + + | 2025-04-02 | Mo | [facility] | Vomiting | Severe | | 00:00 | | [facility] | | | + + + + + + | 2025-04-02 | mo | [facility] | (no reaction) | (no severity) | | 00:00 | | [facility] | | | + + + + + + | 2025-04-02 | Codeine | [facility] | Vomiting | Severe | | 00:00 | | [facility] | | | + + + + + + | 2025-02-12 | Penicillin | [facility] | Rash | Severe | | 00:00 | | [facility] | | | + + + + + + | 2025-02-12 | Penicillin | [facility] | Rash | Severe | | 00:00 | | [facility] | | | + + + + + + | 2025-02-12 | Penicillins | [facility] - | (no reaction) | (no severity) | | 00:00 | | [facility] | | | + + + + + + | 2025-02-12 | Penicillin | [facility] - | Rash | Severe | | 00:00 | | [facility] | | | + + + + + + | 2025-04-02 | Codeine | [facility] - | Vomiting | Severe | | 00:00 | | [facility] | | | | | | Hospital | | | + + + + + + Encounters No information. Functional Status No information. Immunizations + + + + | date | description | facility | + + + + | (no date) | No vaccine administered | [facility] | | | | [facility] | + + + + Medications + + + + | date | description | facility | + + + + | 2025-04-03 00:00 | OXYCODONE | [facility] | | | HCL/ACETAMINOPHEN | [facility] | + + + + | 2025-04-03 00:00 | OXYCODONE | [facility] | | | HCL/ACETAMINOPHEN | [facility] | + + + + | 2025-04-03 00:00 | acetaminophen 325 MG / | [facility] | | | oxycodone hydrochloride 7.5 | [facility] | | | MG Oral T | | + + + + | (no date) | PHENAZOPYRIDINE HCL | [facility] | | | | [facility] | + + + + | (no date) | PHENAZOPYRIDINE HCL | [facility] | | | | [facility] | + + + + | 2025-02-12 00:00 | PHENAZOPYRIDINE HCL | [facility] | | | | [facility] | + + + + | 2025-02-12 00:00 | PHENAZOPYRIDINE HCL | [facility] | | | | [facility] | + + + + | (no date) | phenazopyridine | [facility] | | | hydrochloride 100 MG Oral | [facility] | | | Tablet [Pyridium] | | + + + + | 2025-02-12 00:00 | phenazopyridine | [facility] | | | hydrochloride 100 MG Oral | [facility] | | | Tablet [Pyridium] | | + + + + | 2025-04-03 00:00 | IBUPROFEN | [facility] | | | | [facility] | + + + + | 2025-04-03 00:00 | IBUPROFEN | [facility] | | | | [facility] | + + + + | 2025-04-03 00:00 | ibuprofen 600 MG Oral | [facility] | | | Tablet | [facility] | + + + + | 2025-04-03 00:00 | ACETAMINOPHEN | [facility] | | | | [facility] | + + + + | 2025-04-03 00:00 | ACETAMINOPHEN | [facility] | | | | [facility] | + + + + | 2025-04-03 00:00 | acetaminophen 500 MG Oral | [facility] | | | Tablet | [facility] | + + + + | 2025-02-17 00:00 | NITROFURANTOIN MONOHYD | [facility] | | | MACROCR | [facility] | + + + + | 2025-02-17 00:00 | NITROFURANTOIN MONOHYD | [facility] | | | MACROCR | [facility] | + + + + | 2025-02-17 00:00 | nitrofurantoin, | [facility] | | | macrocrystals 25 MG / | [facility] | | | nitrofurantoin, monohy | | + + + + | (no date) | Cholecalciferol (Vitamin | [facility] | | | D3) | [facility] | + + + + | (no date) | Cholecalciferol (Vitamin | [facility] | | | D3) | [facility] | + + + + | (no date) | cholecalciferol 0.125 MG | [facility] | | | Oral Tablet | [facility] | + + + + | (no date) | TAMSULOSIN HCL | [facility] | | | | [facility] | + + + + | (no date) | TAMSULOSIN HCL | [facility] | | | | [facility] | + + + + | 2025-02-10 00:00 | TAMSULOSIN HCL | [facility] | | | | [facility] | + + + + | 2025-02-10 00:00 | TAMSULOSIN HCL | [facility] | | | | [facility] | + + + + | (no date) | tamsulosin hydrochloride | [facility] | | | 0.4 MG Oral Capsule | [facility] | | | [Flomax] | | + + + + | 2025-02-10 00:00 | tamsulosin hydrochloride | [facility] | | | 0.4 MG Oral Capsule | [facility] | | | [Flomax] | | + + + + Problems + + + + | date | description | facility | + + + + | 2025-02-10 00:00 | Recurrent unilateral | [facility] | | | inguinal hernia | [facility] | + + + + | 2025-02-10 00:00 | Recurrent unilateral | [facility] | | | inguinal hernia | [facility] | + + + + | 2025-02-10 00:00 | Urinary retention due to | [facility] | | | benign prostatic | [facility] | | | hyperplasia | | + + + + | 2025-02-10 00:00 | Urinary retention due to | [facility] | | | benign prostatic | [facility] | | | hyperplasia | | + + + + | 2025-02-17 00:00 | Obstructed Staley catheter | [facility] | | | | [facility] | + + + + | 2025-02-17 00:00 | Obstruction of Staley | [facility] | | | catheter | [facility] | + + + + | 2025-02-17 00:00 | Obstruction of Staley | [facility] | | | catheter | [facility] | + + + + | 2025-04-05 00:00 | Acute abdominal pain in | [facility] | | | right lower quadrant | [facility] | + + + + | 2025-04-05 00:00 | Problem with Staley | [facility] | | | catheter | [facility] | + + + + | 2025-04-05 00:00 | Broken Skip-Hall drain | [facility] | | | | [facility] | + + + + | 2025-04-25 00:00 | Displacement of Staley | [facility] | | | catheter | [facility] | + + + + Procedures + + + + | date | description | facility | + + + + | 2025-04-03 00:00 | SUPPLEMENT R INGUINAL | [facility] | | | REGION WITH SYNTH SUB, OPEN | [facility] | | | APPROACH | | + + + + | 2025-04-03 00:00 | Repair of hernia in | [facility] | | | pediatric patient | [facility] | + + + + | 2025-04-03 00:00 | Repair of hernia in | [facility] | | | pediatric patient | [facility] | + + + + | 2025-04-03 00:00 | Repair of right inguinal | [facility] | | | hernia with mesh | [facility] | + + + + | 2025-04-03 00:00 | Repair of right inguinal | [facility] | | | hernia with mesh | [facility] | + + + + Results/Labs +--------+--------+ +---------+--------+---------+ | test | date | facility | value | unit | notes | +--------+--------+ +---------+--------+---------+ + + | Result panel 1 | + + + + + +--------+ + + | Blood | 2025-03-31 | | 4.49 | (missing) | (missing) | | leukocytes | 10:41 | [facility] | | | | | automated [facility] count | [facility] | | | | | (number/volu | | Hospital | | | | | me) | | | | | | + + + +--------+ + + + + | Result panel 2 | + + + + + +--------+ + + | Blood | 2025-03-31 | | 4.78 | (missing) | (missing) | | erythrocytes | 10:41 | [facility] | | | | | automated | [facility] | count | | Trip | | | | | (number/volu | | Hospital | | | | | me) | | | | | | + + + +--------+ + + + + | Result panel 3 | + + + + + +--------+ + + | Blood | 2025-03-31 | | 14.9 | (missing) | (missing) | | hemoglobin | 10:41 | [facility] | | | | | measurement | [facility] | | (mass/volume | | Trip | | | | | ) | | Hospital | | | | + + + +--------+ + + + + | Result panel 4 | + + + + + +--------+ + + | Automated | 2025-03-31 | | 44.7 | (missing) | (missing) | | blood | 10:41 | [facility] | | | | | hematocrit | [facility] | | | | | | Hospital | | | | + + + +--------+ + + + + | Result panel 5 | + + + + + +--------+ + + | Automated | 2025-03-31 | | 93.5 | (missing) | (missing) | | erythrocyte | 10:41 | [facility] | | | | | mean | [facility] | | | | | corpuscular | | Trip | | | | | volume | | Hospital | | | | + + + +--------+ + + + + | Result panel 6 | + + + + + +--------+ + + | Automated | 2025-03-31 | | 31.2 | (missing) | (missing) | | erythrocyte | 10:41 | [facility] | | | | | mean | | - [facility] | | | | | corpuscular | | Trip | | | | | hemoglobin | | Hospital | | | | | (mass per | | | | | | | erythrocyte) | | | | | | | | | | | | | + + + +--------+ + + + + | Result panel 7 | + + + + + +--------+ + + | Automated | 2025-03-31 | | 33.3 | (missing) | (missing) | | erythrocyte | 10:41 | [facility] | | | | | mean | | - [facility] | | | | | corpuscular | | Trip | | | | | hemoglobin | | Hospital | | | | | concentratio | | | | | | | n | | | | | | | measurement | | | | | | | (mass/volume | | | | | | | ) | | | | | | + + + +--------+ + + + + | Result panel 8 | + + + + + +-------+ + + | Automated | 2025-03-31 | | 200 | (missing) | (missing) | | blood | 10:41 | [facility] | | | | | platelet | [facility] | [facility] count | | Trip | | | | | (count/volum | | Hospital | | | | | e) | | | | | | + + + +-------+ + + + + | Result panel 9 | + + + + + +--------+ + + | Automated | 2025-03-31 | | 53.0 | (missing) | (missing) | | blood | 10:41 | [facility] | | | | | neutrophil | [facility] - [facility] | | | | | count as | | Trip | | | | | percentage | | Hospital | | | | | of total | | | | | | | leukocytes | | | | | | + + + +--------+ + + + + | Result panel 10 | + + + + + +--------+ + + | Automated | 2025-03-31 | | 30.5 | (missing) | (missing) | | blood | 10:41 | [facility] | | | | | lymphocyte | [facility] - [facility] | | [facility] | count as | | Trip | | | | | percentage | | Hospital | | | | | ot total | | | | | | | leukocytes | | | | | | + + + +--------+ + + + + | Result panel 11 | + + + + + +-------+ + + | Automated | 2025-03-31 | | 9.6 | (missing) | (missing) | | blood | 10:41 | [facility] | | | | | monocyte | [facility] - [facility] | | [facility] | count as | | Trip | | | | | percentage | | Hospital | | | | | of total | | | | | | | leukocytes | | | | | | + + + +-------+ + + + + | Result panel 12 | + + + + + +-------+ + + | Automated | 2025-03-31 | | 5.6 | (missing) | (missing) | | blood | 10:41 | [facility] | | | | | eosinophil | [facility] - [facility] count as | | Trip | | | | | percentage | | Hospital | | | | | of total | | | | | | | leukocytes | | | | | | + + + +-------+ + + + + | Result panel 13 | + + + + + +-------+ + + | Automated | 2025-03-31 | | 0.9 | (missing) | (missing) | | blood | 10:41 | [facility] | | | | | basophil | [facility] - [facility] | [facility] | count as | | Trip | | | | | percentage | | Hospital | | | | | of total | | | | | | | leukocytes | | | | | | + + + +-------+ + + + + | Result panel 14 | + + + + + +--------+ + + | WBC # Bld | 2025-03-31 | | 4.49 | (missing) | (missing) | | Auto | 10:41:08 | [facility] | | | | | | Hospital | | | | + + + +--------+ + + + + | Result panel 15 | + + + + + +--------+ + + | RBC # Bld | 2025-03-31 | | 4.78 | (missing) | (missing) | | Auto | 10:41:08 | [facility] | | | | | | Hospital | | | | + + + +--------+ + + + + | Result panel 16 | + + + + + +--------+ + + | Hgb | 2025-03-31 | | 14.9 | (missing) | (missing) | | Bld-mCnc | 10:41:08 | [facility] | | | | | | Hospital | | | | + + + +--------+ + + + + | Result panel 17 | + + + + + +--------+ + + | Hct VFr.DF | 2025-03-31 | | 44.7 | (missing) | (missing) | | Bld Auto | 10:41:08 | [facility] | | | | | | Hospital | | | | + + + +--------+ + + + + | Result panel 18 | + + + + + +--------+ + + | RBC Auto | 2025-03-31 | | 93.5 | (missing) | (missing) | | | 10:41:08 | [facility] | | | | | | Hospital | | | | + + + +--------+ + + + + | Result panel 19 | + + + + + +--------+ + + | MCH RBC Qn | 2025-03-31 | | 31.2 | (missing) | (missing) | | Auto | 10:41:08 | [facility] | | | | | | Hospital | | | | + + + +--------+ + + + + | Result panel 20 | + + + + + +--------+ + + | MCHC RBC | 2025-03-31 | | 33.3 | (missing) | (missing) | | Auto-EntMCnc | 10:41:08 | [facility] | | | | | | Hospital | | | | + + + +--------+ + + + + | Result panel 21 | + + + + + +-------+ + + | Platelet # | 2025-03-31 | | 200 | (missing) | (missing) | | Bld Auto | 10:41:08 | [facility] | | | | | | Hospital | | | | + + + +-------+ + + + + | Result panel 22 | + + + + + +--------+ + + | Neutrophils | 2025-03-31 | | 53.0 | (missing) | (missing) | | NFr Bld | 10:41:08 | [facility] | | | | | Auto | | - [facility] | | | | | | | Hospital | | | | + + + +--------+ + + + + | Result panel 23 | + + + + + +--------+ + + | Lymphocytes | 2025-03-31 | | 30.5 | (missing) | (missing) | | NFr Bld | 10:41:08 | [facility] | | | | | Auto | [facility] | | | | | | Hospital | | | | + + + +--------+ + + + + | Result panel 24 | + + + + + +-------+ + + | Monocytes | 2025-03-31 | | 9.6 | (missing) | (missing) | | NFr Bld Auto | 10:41:08 | [facility] | | | | | | Hospital | | | | + + + +-------+ + + + + | Result panel 25 | + + + + + +-------+ + + | Eosinophil | 2025-03-31 | | 5.6 | (missing) | (missing) | | NFr Bld Auto | 10:41:08 | [facility] | | | | | | Hospital | | | | + + + +-------+ + + + + | Result panel 26 | + + + + + +-------+ + + | Basophils | 2025-03-31 | | 0.9 | (missing) | (missing) | | NFr Bld Auto | 10:41:08 | [facility] | | | | | | | - | | | | | | | Trip | | | | | | | Hospital | | | | + + + +-------+ + + + + | Result panel 27 | + + + + + + + + + | Color Ur | 2025-04-05 | | YELLOW | (missing) | (missing) | | Auto | 09:25:08 | [facility] | | | | | | Hospital | | | | + + + + + + + + + | Result panel 28 | + + + + + + + + + | Character | 2025-04-05 | | SL CLOUDY | (missing) | (missing) | | Ur | 09:25:08 | [facility] | | | | | | Hospital | | | | + + + + + + + + + | Result panel 29 | + + + + + + + + + | Glucose Ur | 2025-04-05 | | NEGATIVE | (missing) | (missing) | | Ql Strip | 09:25:08 | [facility] | | | | | | Hospital | | | | + + + + + + + + + | Result panel 30 | + + + + + + + + + | [place] Ur | 2025-04-05 | | NEGATIVE | (missing) | (missing) | | Ql Strip | 09:25:08 | [facility] | | | | | | | - | | | | | | | Trip | | | | | | | Hospital | | | | + + + + + + + + + | Result panel 31 | + + + + + + + + + | Ketones Ur | 2025-04-05 | | NEGATIVE | (missing) | (missing) | | Ql Strip | 09:25:08 | [facility] | | | | | | Hospital | | | | + + + + + + + + + | Result panel 32 | + + + + + +---------+ + + | Sp Gr Ur | 2025-04-05 | | 1.025 | (missing) | (missing) | | Strip | :25:08 | [facility] | | [facility] Hospital | | | | + + + +---------+ + + + + | Result panel 33 | + + + + + +---------+ + + | Hgb Ur Ql | 2025-04-05 | | LARGE | (missing) | (missing) | | Strip | 09:25:08 | [facility] | | | | | | Hospital | | | | + + + +---------+ + + + + | Result panel 34 | + + + + + +-------+ + + | pH Ur Strip | 2025-04-05 | | 5.5 | (missing) | (missing) | | | 09:25:08 | [facility] | | | | | | Hospital | | | | + + + +-------+ + + + + | Result panel 35 | + + + + + + + + + | Prot Ur | 2025-04-05 | | NEGATIVE | (missing) | (missing) | | Strip-mCnc | ::08 | [facility] | | | | | | Hospital | | | | + + + + + + + + + | Result panel 36 | + + + + + + + + + | | 2025-04-05 | | NORMAL | (missing) | (missing) | | Urobilinogen | ::08 | [facility] | | | | | Ur | [facility] | [facility] | Strip-mCnc | | Trip | | | | | | | Hospital | | | | + + + + + + + + + | Result panel 37 | + + + + + + + + + | Nitrite Ur | 2025-04-05 | | NEGATIVE | (missing) | (missing) | | Ql Strip | 09:25:08 | [facility] | | | | | | Hospital | | | | + + + + + + + + + | Result panel 38 | + + + + + +---------+ + + | Leukocyte | 2025-04-05 | | TRACE | (missing) | (missing) | | esterase Ur | :25:08 | [facility] | | | | | Ql Strip [facility] | | | | | Hospital | | | | + + + +---------+ + + + + | Result panel 39 | + + + + + +---------+ + + | RBC #/area | 2025-04-05 | | 21-40 | (missing) | (missing) | | UrnS HPF | ::08 | [facility] | | | | + + + +---------+ + + + + | Result panel 40 | + + + + + +--------+ + + | WBC #/area | 2025-04-05 | | 7-11 | (missing) | (missing) | | UrnS HPF | 09:25:08 | [facility] | | | | | [facility] | | | | + + + +--------+ + + + + | Result panel 41 | + + + + + + + + + | Epi Cells | 2025-04-05 | | SQUAMOUS 1+ | (missing) | (missing) | | #/area UrnS | 09:25:08 | [facility] | | | | | HPF | [facility] | | | | | | Hospital | | | | + + + + + + + + + | Result panel 42 | + + + + + + + + + | Crystals | 2025-04-05 | | NONE SEEN | (missing) | (missing) | | UrGo Micro | 09:25:08 | [facility] | | | | | | Hospital | | | | + + + + + + + + + | Result panel 43 | + + + + + +------+ + + | Bacteria | 2025-04-05 | | 1+ | (missing) | (missing) | | #/area UrnS | 09:25:08 | [facility] | | | | | HPF | [facility] | | | | | | Hospital | | | | + + + +------+ + + + + | Result panel 44 | + + + + + + + + + | Gerber | 2025-04-05 | | NONE SEEN | (missing) | (missing) | | #/area UrnS | 09:25:08 | [facility] | | | | | LPF | [facility] | | | | | | Hospital | | | | + + + + + + + + + | Result panel 45 | + + + + + +-------+ + + | Bacteria Ur | 2025-04-05 | | Yes | (missing) | (missing) | | Cult | ::08 | [facility] | | | | | Hospital | | | | + + + +-------+ + + + + | Result panel 46 | + + + + + +--------+ + + | Urn Spec | 2025-04-05 | | CATH | (missing) | (missing) | | Collect Meth | ::08 | [facility] | | | | | Ur | [facility] | | | | | | Hospital | | | | + + + +--------+ + + + + | Result panel 47 | + + + + + + + + + | Bacteria Ur | 2025-04-05 | | PSEUDOMONAS | (missing) | (missing) | | Cult | 09:25:08 | [facility] | | | | | | Hospital | | | | + + + + + + + + + | Result panel 48 | + + + + + +---------+ + + | WBC # Bld | 2025-04-05 | | 10.34 | (missing) | (missing) | | Auto | 10:09:08 | [facility] | | | | | Hospital | | | | + + + +---------+ + + + + | Result panel 49 | + + + + + +--------+ + + | Lymphocytes | 2025-04-05 | | 12.9 | (missing) | (missing) | | NFr Bld | 10:09:08 | [facility] | | | | | Auto | [facility] | | | | | | Hospital | | | | + + + +--------+ + + + + | Result panel 50 | + + + + + +--------+ + + | Monocytes | 2025-04-05 | | 10.4 | (missing) | (missing) | | NFr Bld Auto | 10:09:08 | [facility] | | | | | | Hospital | | | | + + + +--------+ + + + + | Result panel 51 | + + + + + +-------+ + + | Eosinophil | 2025-04-05 | | 0.9 | (missing) | (missing) | | NFr Bld Auto | 10:09:08 | [facility] | | | | | | Hospital | | | | + + + +-------+ + + + + | Result panel 52 | + + + + + +-------+ + + | Basophils | 2025-04-05 | | 0.5 | (missing) | (missing) | | NFr Bld Auto | 10:09:08 | [facility] | | | | | | Hospital | | | | + + + +-------+ + + + + | Result panel 53 | + + + + + +--------+ + + | RBC # Bld | 2025-04-05 | | 4.50 | (missing) | (missing) | | Auto | 10:09:08 | [facility] | | | [facility] Hospital | | | | + + + +--------+ + + + + | Result panel 54 | + + + + + +--------+ + + | Hgb | 2025-04-05 | | 14.1 | (missing) | (missing) | | Bld-mCnohelia | 10:09:08 | [facility] | | | | | | | - | | | | | | | Trip | | | | | | | Hospital | | | | + + + +--------+ + + + + | Result panel 55 | + + + + + +-------+---------+ + | Glucose | 2025-04-05 | | 100 | mg/dL | (missing) | | SerPl-mCnohelia | 10:09:08 | [facility] | [facility] | | | | | | Hospital | | | | + + + +-------+---------+ + + + | Result panel 56 | + + + + + +------+---------+ + | BUN | 2025-04-05 | | 19 | mg/dL | (missing) | | SerPl-mCnc | 10:09:08 | [facility] | [facility] | [facility] | | | | | | Hospital | | | | + + + +------+---------+ + + + | Result panel 57 | + + + + + +--------+---------+ + | Creat | 2025-04-05 | | 1.01 | mg/dL | (missing) | | SerPadan-mCnohelia | 10:09:08 | [facility] | | | | + + + +--------+---------+ + + + | Result panel 58 | + + + + + +------+ + + | eGFRcr | 2025-04-05 | | 74 | (missing) | (missing) | | SerPlBld | 10:09:08 | [facility] | | | | | CKD-EPI 2020 | [facility] | | | | + + + +------+ + + + + | Result panel 59 | + + + + + +---------+ + + | BUN/Creat | 2025-04-05 | | 18.81 | (missing) | (missing) | | SerPl | 10:09:08 | [facility] | | | | + + + +---------+ + + + + | Result panel 60 | + + + + + +-------+ + + | Sodium | 2025-04-05 | | 137 | (missing) | (missing) | | [facility] | 10:09:08 | [facility] | | | | + + + +-------+ + + + + | Result panel 61 | + + + + + +--------+ + + | Hct VFr.DF | 2025-04-05 | | 43.5 | (missing) | (missing) | | Bld Auto | 10:09:08 | [facility] | | | | + + + +--------+ + + + + | Result panel 62 | + + + + + +-------+ + + | Potassium | 2025-04-05 | | 4.0 | (missing) | (missing) | | SerPl-sCnc | 10:09:08 | [facility] | | | | + + + +-------+ + + + + | Result panel 63 | + + + + + +-------+ + + | Chloride | 2025-04-05 | | 102 | (missing) | (missing) | | SerPl-s[facility]nc | 10:09:08 | [facility] | | | | + + + +-------+ + + + + | Result panel 64 | + + + + + +------+ + + | CO2 | 2025-04-05 | | 30 | (missing) | (missing) | | SerPl-sCnc | 10:09:08 | [facility] | | | [facility] | | | | + + + +------+ + + + + | Result panel 65 | + + + + + +-------+ + + | Anion Gap | 2025-04-05 | | 9.0 | (missing) | (missing) | | SerPl | 10:09:08 | [facility] | | | | | Calculated.4 | [facility] | | Trip | | | | | | | Hospital | | | | + + + +-------+ + + + + | Result panel 66 | + + + + + +-------+---------+ + | Calcium | 2025-04-05 | | 8.9 | mg/dL | (missing) | | SerPl-m[facility]nc | 10:09:08 | [facility] | | | | + + + +-------+---------+ + + + | Result panel 67 | + + + + + +-------+ + + | Prot | 2025-04-05 | | 7.1 | (missing) | (missing) | | Rosita | 10:09:08 | [facility] | [facility] | | | | + + + +-------+ + + + + | Result panel 68 | + + + + + +-------+ + + | Albumin | 2025-04-05 | | 3.3 | (missing) | (missing) | | SerPl-Kas[facility] | 10:09:08 | [facility] | | | | + + + +-------+ + + + + | Result panel 69 | + + + + + +-------+ + + | Globulin | 2025-04-05 | | 3.8 | (missing) | (missing) | | [facility] | 10:09:08 | [facility] | [facility] | | | | | | | Hospital | | | | + + + +-------+ + + + + | Result panel 70 | + + + + + +--------+ + + | | 2025-04-05 | | 0.87 | (missing) | (missing) | | Albumin/Glob | 10::08 | [facility] | | | | | [facility] | | | | + + + +--------+ + + + + | Result panel 71 | + + + + + +-------+---------+ + | Bilirub | 2025-04-05 | | 1.1 | mg/dL | (missing) | | SerPl-mCnc | 10:09:08 | [facility] | [facility] | | | | + + + +-------+---------+ + + + | Result panel 72 | + + + + + +--------+ + + | RBC Auto | 2025-04-05 | | 96.7 | (missing) | (missing) | | | 10:09:08 | [facility] | | | | | | | - | | | | | | | [facility] | | [facility] | | | Hospital | | | | + + + +--------+ + + + + | Result panel 73 | + + + + + +------+ + + | AST | 2025-04-05 | | 23 | (missing) | (missing) | | SerPl-cCnc | 10:09:08 | [facility] | | | | + + + +------+ + + + + | Result panel 74 | + + + + + +------+ + + | ALT | 2025-04-05 | | 28 | (missing) | (missing) | | SerPl-c[facility]nc | 10:09:08 | [facility] | | | | + + + +------+ + + + + | Result panel 75 | + + + + + +------+ + + | ALP | 2025-04-05 | | 60 | (missing) | (missing) | | SerPl-c[facility]nc | 10:09:08 | [facility] | | | | + + + +------+ + + + + | Result panel 76 | + + + + + +--------+ + + | MCH RBC Qn | 2025-04-05 | | 31.3 | (missing) | (missing) | | Auto | :: [facility] | | | | + + + +--------+ + + + + | Result panel 77 | + + + + + +--------+ + + | MCHC RBC | 2025-04-05 | | 32.4 | (missing) | (missing) | | Auto-[facility] | 10:09:08 | [facility] | | | | + + + +--------+ + + + + | Result panel 78 | + + + + + +-------+ + + | Platelet # | 2025-04-05 | | 192 | (missing) | (missing) | | Bld Auto | 10:09:08 | [facility] | | | | + + + +-------+ + + + + | Result panel 79 | + + + + + +--------+ + + | Neutrophils | 2025-04-05 | | 75.0 | (missing) | (missing) | | NFr Bld | 10:09:08 | [facility] | | | | | Auto | [facility] | | | | + + + +--------+ + + Social History + + + + | date | description | facility | + + + + | (no date) | Current every day smoker | [facility] | + + + + Vital Signs + + + +---------+ | date | measurement | value | units | + + + +---------+ | 2025-03-31 00:00 | BMI | 31.9 | kg/m2 | + + + +---------+ | 2025-03-31 00:00 | height_metric | 175.26 | cm | + + + +---------+ | 2025-03-31 00:00 | height_standard | 69 | in | + + + +---------+ | 2025-03-31 00:00 | weight_metric | 98.001 | kg | + + + +---------+ | 2025-03-31 00:00 | weight_standard | 216.056 | lb | + + + +---------+ | 2025-04-03 00:00 | BP_diastolic | 93 | mmHg | + + + +---------+ | 2025-04-03 00:00 | BP_systolic | 166 | mmHg | + + + +---------+ | 2025-04-03 00:00 | heart_rate | 98 | /min | + + + +---------+ | 2025-04-03 00:00 | o2_saturation | 96 | % | + + + +---------+ | 2025-04-03 00:00 | respiration_rate | 14 | /min | + + + +---------+ | 2025-04-03 00:00 | | 97.4 | F | | | temperature_standar | | | | | d | | | + + + +---------+ | 2025-04-05 00:00 | BMI | 32.8 | kg/m2 | + + + +---------+ | 2025-04-05 00:00 | BP_diastolic | 85 | mmHg | + + + +---------+ | 2025-04-05 00:00 | BP_systolic | 132 | mmHg | + + + +---------+ | 2025-04-05 00:00 | heart_rate | 99 | /min | + + + +---------+ | 2025-04-05 00:00 | height_metric | 175.26 | cm | + + + +---------+ | 2025-04-05 00:00 | height_standard | 69 | in | + + + +---------+ | 2025-04-05 00:00 | o2_saturation | 95 | % | + + + +---------+ | 2025-04-05 00:00 | respiration_rate | 19 | /min | + + + +---------+ | 2025-04-05 00:00 | | 99.4 | F | | | temperature_standar | | | | | d | | | + + + +---------+ | 2025-04-05 00:00 | weight_metric | 100.899 | kg | + + + +---------+ | 2025-04-05 00:00 | weight_standard | 222.443 | lb | + + + +---------+ | 2025-04-25 00:00 | BMI | 32.8 | kg/m2 | + + + +---------+ | 2025-04-25 00:00 | BP_diastolic | 74 | mmHg | + + + +---------+ | 2025-04-25 00:00 | BP_systolic | 139 | mmHg | + + + +---------+ | 2025-04-25 00:00 | heart_rate | 58 | /min | + + + +---------+ | 2025-04-25 00:00 | height_metric | 175.26 | cm | + + + +---------+ | 2025-04-25 00:00 | height_standard | 69 | in | + + + +---------+ | 2025-04-25 00:00 | o2_saturation | 96 | % | + + + +---------+ | 2025-04-25 00:00 | respiration_rate | 16 | /min | + + + +---------+ | 2025-04-25 00:00 | | 98 | F | | | temperature_standar | | | | | d | | | + + + +---------+ | 2025-04-25 00:00 | weight_metric | 100.899 | kg | + + + +---------+ | 2025-04-25 00:00 | weight_standard | 222.443 | lb | + + + +---------+"
[2025-05-06] MEDS ORDERED: SODIUM CHLORIDE 0.9% 1,000 ML IV PRN (12:45)
[2025-05-06 12:46] LABS: ALT (SGPT) 33.0 U/L (14-59); AST (SGOT) 35.0 U/L (15-37); GLOMERULAR FILTRATION RATE,EST 68.0 mL/min (>60); PROTEIN, TOTAL 7.4 g/dL (6.4-8.2); UREA NITROGEN 17.0 mg/dL (7-18)
[2025-05-06 12:49] LABS: LACTIC ACID, BLOOD 1.2 mmol/L (0.4-2.0)
[2025-05-06] MEDS ORDERED: LACTATED RINGER'S 1,000 ML IV SCH (16:15)
[2025-05-06] MEDS ORDERED: ACETAMINOPHEN 325 MG TAB PO PRN (16:15)
[2025-05-06] MEDS ORDERED: TAMSULOSIN HCL 0.4 MG CAP PO SCH (16:16)
[2025-05-06 17:15] VITALS: BP 128/77
[2025-05-06 20:56] VITALS: BP 158/76
[2025-05-06] MEDS ORDERED: MELATONIN 3 MG TAB PO PRN (21:00)
[2025-05-06 21:30] VITALS: BP 158/76
[2025-05-06 23:33] LABS: BLOOD/HGB, URINE LARGE (Negative); KETONE, URINE TRACE (Negative); LEUK ESTERASE, URINE NEGATIVE (negative); NITRITE, URINE NEGATIVE (negative)
[2025-05-06 23:38] LABS: BACTERIA, URINE 1+ /hpf (negative); CASTS, URINE NONE SEEN \\lpf; CRYSTALS, URINE NONE SEEN (0-1+); EPITHELIAL CELLS, URINE SQUAMOUS 1+ /lpf (0-1+); REFLEX CULTURE, URINE Yes (No)
[2025-05-07] VITALS (8 sets, daily range): BP systolic 109–148; BP diastolic 48–88
[2025-05-07 05:53] LABS: BASOPHILS 0.2 % (0.2-1.2); EOSINOPHILS 0.1 % (0.8-7.0); LYMPHOCYTES 4.8 % (21.8-53.1); MCH 31.3 PG (25.7-32.2); MCHC 32.5 g/dL (32.3-36.5); MCV 96.3 fL (79.0-92.2); MONOCYTES 8.0 % (5.3-12.2); NEUTROPHILS 86.3 % (34.0-67.9); RBC 4.09 M/uL (4.63-6.08)
[2025-05-07 06:17] LABS: ALT (SGPT) 28.0 U/L (14-59); AST (SGOT) 28.0 U/L (15-37); GLOMERULAR FILTRATION RATE,EST 70.0 mL/min (>60); PROTEIN, TOTAL 6.9 g/dL (6.4-8.2); UREA NITROGEN 15.0 mg/dL (7-18)
[2025-05-07] MEDS ORDERED: ENOXAPARIN SODIUM 40 MG/0.4 ML SYR SUB-Q SCH (09:00)
[2025-05-07] MEDS ORDERED: FLU (Fluad) 2025-26 (65UP)/MF59C/PF 45 MCG/0.5 ML IM ONE (09:00)
[2025-05-07] MEDS ORDERED: PHARMACY RENAL DOSE ADJUSTMENT 1 DOSE MISC PO SCH (12:00)
[2025-05-07] MEDS ORDERED: POLYETHYLENE GLYCOL 3350 1 PACKET PO SCH ×2 (21:00→23:30)
[2025-05-07] MEDS ORDERED: SENNOSIDES/DOCUSATE 1 EA TAB PO SCH ×2 (21:00→23:30)
[2025-05-08 06:19] VITALS: BP 130/84
[2025-05-08 06:24] VITALS: BP 130/84
[2025-05-08 06:48] LABS: BASOPHILS 0.3 % (0.2-1.2); EOSINOPHILS 0.3 % (0.8-7.0); LYMPHOCYTES 8.5 % (21.8-53.1); MCH 30.8 PG (25.7-32.2); MCHC 33.0 g/dL (32.3-36.5); MCV 93.2 fL (79.0-92.2); MONOCYTES 8.2 % (5.3-12.2); NEUTROPHILS 81.8 % (34.0-67.9); RBC 3.70 M/uL (4.63-6.08)
[2025-05-08 07:09] LABS: ALT (SGPT) 47.0 U/L (14-59); AST (SGOT) 36.0 U/L (15-37); GLOMERULAR FILTRATION RATE,EST 89.0 mL/min (>60); PROTEIN, TOTAL 6.3 g/dL (6.4-8.2); UREA NITROGEN 10.0 mg/dL (7-18)
[2025-05-08 10:22] VITALS: BP 122/66
[2025-05-08] MEDS ORDERED: CEFPODOXIME PR200 MG PO (10:36)
[2025-05-08 10:50] VITALS: BP 122/66
[2025-05-08 16:26] LABS: HEPATITIS A ANTIBODY, IGM Negative (Negative); HEPATITIS C AB CIA INTERP Negative (Negative); HEPATITIS C ANTIBODY CIA INDEX 0.09 IV (())
== END 2025-05-08 11:25 | disposition home or self-care (01) | DRG 872 ==
LOC: ED 11:57 → MS 16:25
PROVIDERS: Emergency Medicine; ADMIT Student in an Organized Health Care Education/Training Program; ATTEND Student in an Organized Health Care Education/Training Program
PROC: 0T2BX0Z Change Drainage Device in Bladder, External Approach (ICD-10-PCS; principal; 2025-05-06)
PROC: 3E03329 Introduction of Other Anti-infective into Peripheral Vein, Percutaneous Approach (ICD-10-PCS; 2025-05-06)
DX: A41.9 Sepsis, unspecified organism (principal); T83.511A Infection and inflammatory reaction due to indwelling urethral catheter, initial encounter; N39.0 Urinary tract infection, site not specified; Z96.0 Presence of urogenital implants; N40.1 Benign prostatic hyperplasia with lower urinary tract symptoms; R33.8 Other retention of urine; E80.6 Other disorders of bilirubin metabolism; Z66 Do not resuscitate; F17.210 Nicotine dependence, cigarettes, uncomplicated; Z60.2 Problems related to living alone; Z87.19 Personal history of other diseases of the digestive system; Z98.890 Other specified postprocedural states; Z88.0 Allergy status to penicillin; Z88.5 Allergy status to narcotic agent; Z79.2 Long term (current) use of antibiotics; Z79.899 Other long term (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; Y84.6 Urinary catheterization as the cause of abnormal reaction of the patient, or of later complication, without mention of misadventure at the time of the procedure
CPT/HCPCS: 36415; 71045; 74177; 80053; 80074; 81001; 83605; 83735; 85025; 85060; 87040; 87088; 90653; 96365; 97116; 97161; 97165; 97530; 97535; 99285-25; A9270; G0008; J0696; J1650; J7030; J7121; Q9967

== ENCOUNTER 2025-05-14 16:22 | Emergency (ER) | payer MEDICARE ==
[~2025-05-14] VITALS: Ht 175.3 cm; Wt 95.5 kg
--- OUTSIDE RECORDS SUMMARY | ~2025-05-14 | XMS | Continuity of Care Document ---
Demographics + + + | Address | [address] [address] | | | [place] [address] | + + + | Preferred Language | Unknown | + + + | Marital Status | | + + + | Rastafarian Affiliation | Unknown | + + + | Race | White | + + + | Ethnic Group | Not or | + + + Author + + + | Author | [facility] | + + + | Organization | [facility] | + + + | Address | [address] | | | [place] [address] | + + + | Phone | | + + + Care Team Providers + + + + | Care Steam Gigger Name | Role | Phone | + [...] | Severe | | 00:00 | | [facility] | | | | | | Hospital | | | + + + + + + Encounters No information. Functional Status No information. Immunizations + + + + | date | description | facility | + + + + | (no date) | No vaccine administered | [facility] | + + + + Medications + + + + | date | description | facility | + + + + | 2025-04-03 00:00 | [facility] | [facility] | | | HCL/ACETAMINOPHEN | [facility] | + + + + | 2025-04-03 00:00 | OXYCODONE | [facility] | | | HCL/ACETAMINOPHEN | [facility] | + + + + | 2025-04-03 00:00 | acetaminophen 325 MG / | [facility] | | | oxycodone hydrochloride 7.5 | [facility] | | | MG Oral T | | + + + + | (no date) | PHENAZOPYRIDINE HCL | [facility] | | | | [facility] | + + + + | (no date) | PHENAZOPYRIDINE HCL | [facility] | | | | [facility] | + + + + | () | phenazopyridine | [facility] | | | hydrochloride 100 MG Oral | [facility] | | | Tablet [Pyridium] | | + + + + | 2025-04-03 00:00 | IBUPROFEN | [facility] | | | | [facility] | + + + + | 2025-04-03 00:00 | IBUPROFEN | [facility] | | | | [facility] | + + + + | 2025-04-03 00:00 | ibuprofen 600 MG Oral | [facility] | | | Tablet | [facility] | + + + + | 2025-04-03 00:00 | ACETAMINOPHEN | [facility] | | | | [facility] | + + + + | 2025-04-03 00:00 | ACETAMINOPHEN | [facility] | | | | [facility] | + + + + | 2025-04-03 00:00 | acetaminophen 500 MG Oral | [facility] | | | Tablet | [facility] | + + + + | 2025-02-17 00:00 | NITROFURANTOIN MONOHYD | [facility] | | | MACROCR | [facility] | + + + + | 2025-02-17 00:00 | NITROFURANTOIN MONOHYD | [facility] | | | MACROCR | [facility] | + + + + | 2025-02-17 00:00 | nitrofurantoin, | [facility] | | | macrocrystals 25 MG / | [facility] | | | nitrofurantoin, monohy | | + + + + | (no date) | Cholecalciferol (Vitamin | [facility] | | | D3) | [facility] | + + + + | (no date) | Cholecalciferol (Vitamin | [facility] | | | D3) | [facility] | + + + + | (no date) | cholecalciferol 0.125 MG | [facility] | | | Oral Tablet | [facility] | + + + + | (no date) | TAMSULOSIN HCL | [facility] | | | | [facility] | + + + + | (no date) | TAMSULOSIN HCL | [facility] | | | | [facility] | + + + + | (no date) | tamsulosin hydrochloride | [facility] | | | 0.4 MG Oral Capsule | [facility] | | | [Flomax] | | + + + + Problems + + + + | date | description | facility | + + + + | 2025-02-17 00:00 | Obstructed Staley catheter | [facility] | | | | [facility] | + + + + | 2025-02-17 00:00 | Obstruction of Staley | [facility] | | | catheter | [facility] | + + + + | 2025-02-17 00:00 | Obstruction of Staley | [facility] | | | catheter | [facility] | + + + + | 2025-04-05 00:00 | Acute abdominal pain in | [facility] | | | right lower quadrant | [facility] | + + + + | 2025-04-05 00:00 | Problem with Staley | [facility] | | | catheter | [facility] | + + + + | 2025-04-05 00:00 | Keyon childs | [facility] | | | | [facility] | + + + + | 2025-04-25 00:00 | Displacement of Staley | [facility] | | | catheter | [facility] | + + + + Procedures + + + + | date | description | facility | + + + + | 2025-04-03 00:00 | SUPPLEMENT R ABELINO | [facility] | | | REGION WITH SYNTH SUB, OPEN | [facility] | | | APPROACH | | + + + + | 2025-04-03 00:00 | Repair of hernia in | [facility] | | | pediatric patient | [facility] | + + + + | 2025-04-03 00:00 | Repair of hernia in | [facility] | | | pediatric patient | [facility] | + + + + | 2025-04-03 00:00 | Repair of right inguinal | [facility] | | | hernia with mesh | [facility] | + + + + | 2025-04-03 00:00 | Repair of right inguinal | [facility] | | | hernia with mesh | [facility] | + + + + Results/Labs +--------+--------+ [...] + + + + + + | [facility] | 2025-04-05 | | NEGATIVE | (missing) | (missing) | | Ql Strip | :08 | [facility] | | | | | [...] | (missing) | | Ql Strip | :08 | [facility] | | | | | [...] (missing) | | Strip | 09:25:08 | [facility] | | [...] | (missing) | | esterase Ur | 09:25:08 | [facility] | | [...] SEEN | (missing) | (missing) | | UrnS Micro | 09:25:08 | [facility] | | [...] + + + + + + | Casts | 2025-04-05 | | NONE SEEN | (missing) | (missing) | | #/area UrnS | ::08 | [facility] | | | [...] (missing) | (missing) | | Cult | :25:08 | [facility] | | | [...] | (missing) | | Collect Meth | 09:25:08 | [facility] | | | [...] (missing) | | Auto | 10:09:08 | [facility] | | | | | [...] | (missing) | | NFr Bld | 10::08 | [facility] | | | [...] 14.1 | (missing) | (missing) | | Bld-mCnc | 10:09:08 | [facility] | | | [...] 100 | mg/dL | (missing) | | SerPl-[facility] | 10:09:08 [...] 1.01 | mg/dL | (missing) | | SerPl-mCnc [...] 137 | (missing) | (missing) | | SerPl-sCnc [...] 30 | (missing) | (missing) | | [facility] | 10:09:08 | [facility] | | | [...] 7.1 | (missing) | (missing) | | Valeria-Kasandra | 10:09:08 | [facility] | | | [...] 3.3 | (missing) | (missing) | | [facility] | 10:09:08 | [facility] | | | [...] 3.8 | (missing) | (missing) | | Ser-mCnc | 10:09:08 | [facility] | | | [...] (missing) | (missing) | | Albumin/Glob | 10:09:08 | [facility] | | | [...] 23 | (missing) | (missing) | | SerPl-[facility] | 10:09:08 | [facility] | | | [...] (missing) | (missing) | | Auto | 10:: | [facility] | | | | | [...] (missing) | (missing) | | Auto-EntMCnc | 10::08 | [facility] | | | [...] date) | Current every day smoker | [facility] | | | | [facility] | + + + + Vital [...]
[~2025-05-14 16:22] MED LIST changes: +CEFPODOXIME PR200 MG PO
--- OUTSIDE RECORDS SUMMARY | 2025-05-14 16:27 | XMS ---
PreManage Notification: LILI JUAREZ [employer] Events No recent Security Events currently on file CRITERIA MET - 6 ED Visits in 6 Months - [facility] - 2 Visits in 30 Days CARE PROVIDERS There are no care providers on record at this time. Eliazar has no Care Guidelines for this patient. [facility] (12 MO.) [facility] NOTE: Visits indicate total known visits. ED/UCC VISIT TRACKING (12 MO.) [facility] COMPLAINT: - URINE PROBLEM 05/06/2025 11:57 [facility] TYPE: Emergency COMPLAINT: - POSS UTI,FEVER 05/05/2025 12:54 [facility] TYPE: Emergency COMPLAINT: - CONFUSION DIAGNOSES: - Allergy status to penicillin - Disorientation, unspecified - Nicotine dependence, unspecified, uncomplicated - Urinary tract infection, site not specified 04/25/2025 10:01 [facility] TYPE: Emergency [...] - Nicotine dependence, unspecified, uncomplicated - Other fpc (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 - Other mechanical complication of indwelling urethral catheter, initial encounter 02/16/2025 23:47 [facility] TYPE: Emergency COMPLAINT: - CATHETER ISSUES DIAGNOSES: - Allergy status to narcotic agent - Allergy status to penicillin - Nicotine dependence, unspecified, uncomplicated - 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 - Other mechanical complication [...] - Nicotine dependence, unspecified, uncomplicated - Other fpc (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 - Other retention of [...] - Nicotine dependence, unspecified, uncomplicated - 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 - Other retention of urine - Unilateral inguinal hernia, without obstruction or gangrene, recurrent INPATIENT VISIT TRACKING (12 MO.) 05/06/2025 16:25 [facility] TYPE: [facility] COMPLAINT: - SEPSIS/UTI DIAGNOSES: - Allergy status to narcotic agent - Allergy status to penicillin - Benign prostatic hyperplasia with lower urinary tract symptoms - Disorientation, unspecified - Do not resuscitate - Infection and inflammatory reaction due to indwelling urethral catheter, initial encounter - senior living (current) use of antibiotics - Nicotine dependence, cigarettes, uncomplicated - Other disorders of bilirubin metabolism - Other fpc (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 - Other retention of urine - Other specified postprocedural states - Personal history of other diseases of the digestive system - Presence of urogenital implants - Problems related to living alone - Sepsis, unspecified organism - Urinary catheterization as the cause of abnormal reaction of the patient, or of later complication, without mention of misadventure at the time of the procedure - Urinary tract infection, site not specified [email or web address]
[2025-05-14] MEDS ORDERED: PYRIDIUM100 MG PO (16:29)
[2025-05-14] MEDS ORDERED: IBUPROFEN 600 MG TAB PO ONE (18:30)
[2025-05-14] MEDS ORDERED: LIDOCAINE 2% VISCOUS 6 ML SYR TOP ONE (18:30)
[2025-05-14 18:57] LABS: BLOOD/HGB, URINE LARGE (Negative); KETONE, URINE NEGATIVE (Negative); LEUK ESTERASE, URINE NEGATIVE (negative); NITRITE, URINE NEGATIVE (negative)
[2025-05-14 19:12] LABS: BACTERIA, URINE NONE SEEN /hpf (negative); CRYSTALS, URINE NONE SEEN (0-1+); EPITHELIAL CELLS, URINE NONE SEEN /lpf (0-1+)
[2025-05-14 19:13] LABS: CASTS, URINE NONE SEEN \\lpf; REFLEX CULTURE, URINE No (No)
[2025-05-14 19:34] VITALS: BP 137/72
== END 2025-05-14 19:34 | disposition home or self-care (01) ==
LOC: ED 16:22
PROVIDERS: Emergency Medicine
DX: R33.9 Retention of urine, unspecified (principal); F17.200 Nicotine dependence, unspecified, uncomplicated; Z79.899 Other long term (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; Z88.0 Allergy status to penicillin; Z88.5 Allergy status to narcotic agent
CPT/HCPCS: 51702; 51798; 81001; 99283; A4311; A9270